=== PATIENT | female | born 1965 | race Hispanic/Latino ===

== ENCOUNTER → 2020-03-22 | Outpatient (CLI) | payer OTHER ==
[~2020-03-22] MED LIST: DUREZOL5 ML OP; FUROSEMIDE40 MG PO; LEVOTHYROXINE300 MCG PO; LOSARTAN POTAS100 MG PO; MECLIZINE HCL12.5 MG PO; METOPROLOL TART50 MG PO; PRAVACHOL20 MG PO; VITAMIN C250 MG PO; VITAMIN D250 MCG PO
== END ==
LOC: RAD 05:00 → EDSTATUS 03-27 13:30
PROVIDERS: ATTEND Internal Medicine Gastroenterology
DX: U07.1 COVID-19 (principal); Z01.818 Encounter for other preprocedural examination; Z12.11 Encounter for screening for malignant neoplasm of colon; Z53.8 Procedure and treatment not carried out for other reasons
CPT/HCPCS: 93005; U0002

== ENCOUNTER → 2020-05-02 | Day surgery (SDC) | payer OTHER ==
[~2020-05-02] MED LIST changes: +FENTANYL CITRATE/PF 100MCG/2 ML INJ ONE; +HYOSCYAMINE 0.125 MG TAB ONE; +LIDOCAINE HCL 2% LOCAL INJ 5 ML SDV VIAL INJ ONE; +MIDAZOLAM HCL 2 MG/2 ML VIAL ONE; +PROPOFOL IV EMULSION 10 MG/ML 20 ML VIAL ONE
[2020-05-02 14:15] VITALS: BP 149/89
--- NOTE | 2020-05-02 16:26 | Operative Report ---
DATE OF PROCEDURE: 05/02/2020 SURGEON: Bonilla Paredes MD PROCEDURE: Colonoscopy note. INDICATIONS FOR COLONOSCOPY: Colorectal cancer screening. MEDICATIONS: The patient was done under MAC, please see anesthesiologist's note. PROCEDURE IN DETAIL: With the patient in the left lateral decubitus position, a flexible fiberoptic Olympus colonoscope was inserted into the rectum with ease and advanced all the way to the cecum. Moderate amount of fecal material was scattered in the colon, but visualization was fair. The scope was then withdrawn slowly, was visualized the mucosa overlying the cecum, ascending colon, transverse, descending, sigmoid, and rectum grossly appeared to be within normal limits. The scope was then retroflexed into the distal rectum and small internal hemorrhoids were noted, none of which was actively bleeding. The scope was then straightened out, it was subsequently withdrawn. The patient tolerated the procedure well. IMPRESSION: 1. Suboptimal prep, but visualization was fair. 2. Internal hemorrhoids, none actively bleeding. PLAN: 1. Initiate high-fiber, low-fat diet. 2. Initiate high-fiber supplement. 3. The patient might benefit from a followup colonoscopy in 3 to 5 years. Bonilla Paredes MD [facility] [place] /[id number] cc: Alvarez Dixon
== END | disposition home or self-care (01) ==
LOC: OR 10:10
PROVIDERS: ATTEND Internal Medicine Gastroenterology
DX: Z12.11 Encounter for screening for malignant neoplasm of colon (principal); K64.8 Other hemorrhoids; K59.00 Constipation, unspecified; I10 Essential (primary) hypertension; E78.5 Hyperlipidemia, unspecified; K21.9 Gastro-esophageal reflux disease without esophagitis; R42 Dizziness and giddiness; Z88.1 Allergy status to other antibiotic agents; Z88.2 Allergy status to sulfonamides; Z88.8 Allergy status to other drugs, medicaments and biological substances; Z91.048 Other nonmedicinal substance allergy status
CPT/HCPCS: 45378; J2001; J2704; J2250; J3010

== ENCOUNTER 2020-09-22 15:51 | Emergency (ER) | payer OTHER ==
[~2020-09-22] VITALS: Ht 157.5 cm; Wt 84.4 kg
[~2020-09-22 15:51] MED LIST changes: -FENTANYL CITRATE/PF 100MCG/2 ML INJ ONE; -HYOSCYAMINE 0.125 MG TAB ONE; -LIDOCAINE HCL 2% LOCAL INJ 5 ML SDV VIAL INJ ONE; -MIDAZOLAM HCL 2 MG/2 ML VIAL ONE; -PROPOFOL IV EMULSION 10 MG/ML 20 ML VIAL ONE
[2020-09-22] MEDS ORDERED: ONDANSETRON HCL INJ 2MG/ML 2ML 2 MG/ML VIAL IV STA (17:32)
[2020-09-22] MEDS ORDERED: MORPHINE SULFATE INJ 4 MG/ML INJ 1ML IV STA (17:32)
[2020-09-22 17:37] LABS: BASOPHILS % 0.2 % (0.0-1.0); EOSINOPHILS % 0.1 % (0.0-6.0); HEMATOCRIT 45.6 % (34.2-44.1); HEMOGLOBIN 14.8 g/dL (12.0-16.0); LYMPHOCYTES # (AUTO) 0.8 (1.0-3.2); LYMPHOCYTES % 5.1 % (18.0-39.1); MEAN CORPUSCULAR HEMOGLOBIN 30.6 pg (28-32); MEAN CORPUSCULAR HGB CONC 32.5 g/dL (31-35); MEAN CORPUSCULAR VOLUME 94.2 fL (81-99); MONOCYTES # (AUTO) 0.6 (0.2-0.8); MONOCYTES % 3.9 % (4.4-11.3); NEUTROPHILS # (AUTO) 13.6 (2.1-6.9); NEUTROPHILS % 90.1 % (38.7-80.0); PLATELET COUNT 424 x10e3/uL (140-360); RED BLOOD COUNT 4.84 x10e6/uL (3.6-5.1); RED CELL DISTRIBUTION WIDTH 13.7 % (11.7-14.4)
[2020-09-22 17:53] LABS: ANION GAP 16.7 mmol/L (8-16); CREATININE, SERUM 0.97 mg/dL (0.57-1.11); POTASSIUM 3.7 mmol/L (3.5-5.1)
[2020-09-22 18:19] LABS: CLARITY,URINE CLEAR (CLEAR); COLOR,URINE YELLOW (YELLOW); LEUKOCYTE ESTERASE ,URINE NEGATIVE (NEGATIVE); NITRITE,URINE NEGATIVE (NEGATIVE)
[2020-09-22 18:20] LABS: KETONES,URINE 2+ (NEGATIVE); PROTEIN,URINE DIPSTICK 2+ (NEGATIVE); URINE UROBILINOGEN 0.2 mg/dL (0.2 - 1)
[2020-09-22 18:41] LABS: EPITHELIAL CELLS,URINE RARE /LPF; RBC,URINE 0-5 /HPF (0-5)
[2020-09-22] MEDS ORDERED: GADOBENATE DIMEGLUMINE 1 ML IV ONE (20:27)
[2020-09-22 20:30] LABS: LYMPHOCYTES % (MANUAL) 7 % (19-48); MONOCYTES % (MANUAL) 5 % (3.4-9.0); NEUTROPHILS % (MANUAL) 88 % (40-74); PLATELET ESTIMATE ADEQUATE; PLATELET MORPHOLOGY COMMENT NORMAL
[2020-09-22 20:31] LABS: RBC MORPHOLOGY COMMENT NORMAL
[2020-09-23] MEDS ORDERED: HYDROCODONE/APAP 10MG-325MG TAB PO ONE (00:30)
[2020-09-23 01:13] VITALS: BP 146/88
== END 2020-09-23 01:05 | disposition home or self-care (01) ==
LOC: ER 16:39
DX: M54.42 Lumbago with sciatica, left side (principal); C79.31 Secondary malignant neoplasm of brain; I10 Essential (primary) hypertension; E03.9 Hypothyroidism, unspecified; R32 Unspecified urinary incontinence
CPT/HCPCS: 36415; 70450; 70553; 72156; 72157; 72158; 80053; 81001; 85025; 99283; A9577; J2270; J2405